=== PATIENT | male | born 1935 | race Caucasian/White ===

== ENCOUNTER 2017-11-17 20:26 | Inpatient (IN) | payer OTHER, BC ==
[~2017-11-17] VITALS: Ht 180.3 cm; Wt 70.0 kg
--- NOTE | ~2017-11-17 | 2DMMODE ---
[facility] [address] [place] [address] 2 D/M-MODE ECHOCARDIOGRAM Name: TIMODAVID Room #: 205-P ADM IN ..#: [id number] Admission: 11/17/17 Attend Phys: Remi Ortiz MD Discharge: Date of : 33 Date of Service: 11/18/17 1146 Report #: [id number] THIS REPORT FOR: //name// APPROVED REPORT Study performed: 11/18/2017 09:36:20 EXAM: Comprehensive 2D, Doppler, and color-flow Echocardiogram Patient Location: Bedside Room #: 205 Status: routine BSA: 1.97 HR: 91 bpm BP: 112/51 mmHg Other Information Study Quality: Adequate/Technically Difficult Indications COPD Diabetes Atrial Fibrillation CAD Hypertension/HDD 2D Dimensions RVDd: 32.59 mm LVEF(%): 60.59 (>50%) IVSd: 20.50 (7-11mm) LVOT Diam: 19.22 (18-24mm) LVDd: 37.82 mm PWd: 16.07 (7-11mm) Ascending Ao: 31.62 (22-36mm) LVDs: 25.80 (25-40mm) Aortic Root: 30.00 mm IVC: 17.00 mm Keene's LVEF: 60.59 % Volumes Left Atrial Volume (Systole) Single Plane 4CH: 104.75 mL Single Plane 2CH: 99.10 mL LA ESV Index: 59.00 mL/m2 Aortic Valve AoV Peak Humphrey.: 1.62 m/s AO Peak Gr.: 10.43 mmHg LVOT Max P.68 mmHg LVOT Max V: 1.19 m/s JOVANY Vmax: 2.13 cm2 [facility] [address] [place] [address] 2 D/M-MODE ECHOCARDIOGRAM Name: [facility] Room #: 205-P [facility] IN .R.#: [id number] Admission: 11/17/17 Attend Phys: Remi Ortiz MD Discharge: Date of : 34 Date of Service: 11/18/17 1146 Report #: [id number] Mitral Valve MV Decel. Time: 143.55 ms MV E Max Humphrey.: 0.90 m/s IVRT: 100.35 ms Pulmonary Valve PV Peak Humphrey.: 1.23 m/s PV Peak Gr.: 6.05 mmHg Tricuspid Valve TR Peak Humphrey.: 3.02 m/s RAP Estimate: 5.00 mmHg TR Peak Gr.: 36.36 mmHg PA Pressure: 41.00 mmHg Left Ventricle Left ventricular cavity is small. Severe left ventricular hypertrophy. with significantly thickened interventricular septum Left ventricular systolic function is hyperdynamic. LVEF is >70%. This study is not technically sufficient to allow evaluation of the LV diastolic function due to atrial fibrillation. Right Ventricle The right ventricle is normal size. Right ventricle is mildly hypokinetic. Atria Left atrium is severely dilated. Right atrium is mildly dilated. Aortic Valve The Aortic valve is sclerotic. No aortic regurgitation is present. There is no aortic valvular stenosis. Mitral Valve Mild mitral annular calcification. Trace mitral regurgitation. No evidence of mitral valve stenosis. Tricuspid Valve The tricuspid valve is normal in structure. Trace tricuspid regurgitation. PAP is estimated at 41 mmHg. Pulmonic Valve The pulmonary valve is normal in structure. Trace pulmonic regurgitation. Great Vessels [facility] [address] [place] [address] 2 D/M-MODE ECHOCARDIOGRAM Name: [facility] Room #: 205-P ADM IN M.R.#: [id number] Admission: 11/17/17 Attend Phys: Remi Ortiz MD Discharge: Date of : 34 Date of Service: 11/18/17 1146 Report #: [id number] The aortic root is normal in size. IVC is normal in size and collapses >50% with inspiration. Pericardium There is no pericardial effusion. <Conclusion> Left ventricular cavity is small. Severe left ventricular hypertrophy. with significantly thickened interventricular septum LVEF is >70%. Left atrium is severely dilated. Right atrium is mildly dilated. The Aortic valve is sclerotic. Mild mitral annular calcification. Trace mitral regurgitation. The tricuspid valve is normal in structure. Trace tricuspid regurgitation. PAP is estimated at 41 mmHg. The pulmonary valve is normal in structure. Trace pulmonic regurgitation. There is no pericardial effusion. <ELECTRONICALLY SIGNED> By: Matthew West MD 11/18/17 1146 1146 1146 Matthew West MD /INF
--- NOTE | ~2017-11-17 | EKG ---
[address] [address] ELECTROCARDIOGRAM REPORT Name: DAVID GREENWOOD Room #: 458-P ADM IN M.R.#: [id number] Admission: 11/17/17 Attend Phys: Remi Ortiz MD Discharge: Date of : 34 Report #: [id number] THIS REPORT FOR: //name// [facility] ED Test Date: 2017-11-17 Test Time: 20:36:13 Pat Name: DAVID GREENWOOD Department: Room: Gender: M Content Strategist: RUBEN : 1935 Requested By: Gera Dash Order Number: [id number] MD: Sukh Buckley Measurements Intervals [place] Rate: 89 P: AL: QRS: 4 QRSD: 106 T: 66 QT: 408 QTc: 497 Interpretive Statements Atrial fibrillation Ventricular premature complex Probable left ventricular hypertrophy Prolonged QT interval Compared to ECG 03/01/2011 08:24:05 Ventricular premature complex(es) now present Prolonged QT interval now present ST (T wave) deviation no longer present Possible ischemia no longer present Electronically Signed On 11-17-2017 22:18:53 CDT by Sukh Buckley [email or web address] <ELECTRONICALLY SIGNED> By: Sukh Buckley MD 11/17/172217 35 35 Sukh Buckley MD /EPI
--- NOTE | ~2017-11-17 | HC ---
[facility] [place] [address] CONSULTATION Name: DAVID GREENWOOD Room #: 462-P ADM IN M.R.#: [id number] Admission: 11/17/17 Attend Phys: Clare Ty Discharge: Date of : 34 Report #: [id number] THIS REPORT FOR: //name// CC: Jose Ty DATE OF SERVICE: 11/21/2017 CONSULTATION: Infectious Diseases. HISTORY OF PRESENT ILLNESS: The patient is an 82-year-old white male who was admitted to [facility], 11/17/2017 when he fell and was too weak to get up. He was home on the floor for approximately 8 hours before his nephew came home and found him there and brought him to the hospital. In the hospital, the patient was noted to be dehydrated with a very low potassium at 2.2, leukocytosis and positive troponin, but probably not in acute myocardial infarction. The patient had been given a history of diarrhea for about one week prior to this illness. He had previous falls, but has not been trapped on the floor before. Because of the diarrhea, stool cultures were obtained. In addition, blood cultures were obtained because of the general debility. Infectious Disease consultation was requested when stool and one blood culture both came back with Salmonella. PAST MEDICAL HISTORY: Past history is significant for diabetes with hypertension and hyperlipidemia. The patient has coronary artery disease, history of atrial fibrillation and stroke. He has COPD. Other diagnoses include gastroesophageal reflux disease, prostatic hypertrophy and degenerative joint disease. The patient has had a cholecystectomy. ALLERGIES: The patient gives no history of drug allergies. FAMILY HISTORY: Noncontributory. SOCIAL HISTORY: The patient is . He lives with his nephew, but apparently has been fairly independent with activities of daily living and even driving prior to coming to the hospital. The patient was a smoker in the past, but quit about 1 year ago. No history of alcohol use. 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 REVIEW OF SYSTEMS: The patient offers no complaints, but he may be a bit confused and have some hearing deficits; so, I am not too sure how reliable this is. When asked regarding problems with head, neck or chest, the patient denies any problems. He admits he did have diarrhea, but this is now resolved. The patient denies any urinary complaints. He notes weakness in his extremities, mostly in his legs and to a lesser degree, in his arms. [facility] [address] [place] [address] CONSULTATION Name: DAVID GREENWOOD Room #: 462-P ADM IN M.R.#: [id number] Admission: 11/17/17 Attend Phys: Clare Ty Discharge: Date of : 34 Report #: [id number] PHYSICAL EXAMINATION: GENERAL: On examination, the patient appears his stated age, alert and oriented to time, place and person. He is in no distress. VITAL SIGNS: Show the patient has been afebrile throughout this hospitalization. Pulse and blood pressure have been normal. SKIN: Shows no rash, no lesion. ENT EXAMINATION: Negative. There appears to be hearing deficit, particularly on the left side. NECK: Supple. HEART: Heart sounds S1, S2, regular rate. LUNGS: Clear to anterior auscultation. ABDOMEN: The belly is soft and not tender. No rebound, no guarding. EXTREMITIES: Unremarkable. LABORATORY DATA: The white count was 18 on admission and is now down to 10.9; hemoglobin has gone from 15.1 to 12.3 with hydration and platelets are 335,000. Chemistry: Sodium 144, potassium has gone from 2.2 to 3.2, chloride 114, bicarbonate 15, BUN 86 and creatinine has gone from 5 to 3.1. The INR was 18 and vitamin K is down to 1.4. Liver function tests are normal. Troponin has been elevated. One blood culture as well as the stool are positive for Salmonella, susceptible to ampicillin, Bactrim and Rocephin. SUMMARY: In summary, the patient has been debilitated and falling. He was down for about 8 hours before he was found with his last fall. Workup shows in the setting of 7 days of diarrhea, Salmonella in the blood and urine. Of note, the patient has not been aware of anyone else with diarrhea. He is not aware of any mishandled or bad poultry products. I believe the patient would benefit from antibiotic therapy for the Salmonella. With the elevated creatinine, Rocephin would be an excellent choice because of his dual pathways of excretion. In addition, the hepatic excretion creates very high levels of Rocephin in the gut, which is then not absorbed and passes through and may offer a topical treatment for enteric infections. Antibiotic therapy may increase the state, which could be a problem as the patient is to go to rehab. At this time, we will continue Rocephin as has been initiated. The patient will need isolation. I elect to do followup electrolytes including magnesium. We will want to notify Infection Control and probably the Health Department as Salmonella is a reportable disease. [facility] [address] [place] [address] CONSULTATION Name: DAVID GREENWOOD Room #: 462-P [facility] IN M.R.#: [id number] Admission: 11/17/17 Attend Phys: Clare Ty Discharge: Date of : 34 Report #: [id number] I appreciate the opportunity of input in the care of the patient. Dr. Mikhail Buckley will return on Wednesday for additional infectious disease followup. By: 2135 0210 Alberto Munoz MD /anand
[~2017-11-17 20:26] MED LIST: AMLODIPINE BESYL5 MG PO; ASPIRIN325 PO; COUMADIN 4 MG TA4 M1 PO; D3 DOTS2000 UNIT PO; DILTIAZEM 24HR300 M1 PO; FUROSEMIDE 20 M20 M1 PO; GLUCOPHAGE1000 MG PO; HYDROCODON-ACE1 EAC7 PO; LISINOPRIL20 MG PO; LOVASTAT10 PO; LOVASTAT20 PO; METAMUCIL283 GM PO; MIRALAX255 GM PO; NORVASC 5 MG TAB5 MG PO; PROAIR HFA8.5 GM INH; SYMBICORT160 MCG/4. INH; SYMBICORT80 MCG/4.1 INH
[2017-11-17 20:39] VITALS: BP 105/47
[2017-11-17 21:32] LABS: URINE BILIRUBIN NEGATIVE (Negative); URINE BLOOD NEGATIVE (Negative); URINE CLARITY CLEAR; URINE COLOR YELLOW; URINE GLUCOSE-RANDOM* NEGATIVE (Negative); URINE KETONES NEGATIVE (Negative); URINE LEUKOCYTES-REFLEX NEGATIVE (Negative); URINE NITRITE-REFLEX NEGATIVE (Negative); URINE PROTEIN (DIPSTICK) 1+ (Negative); URINE SPECIFIC GRAVITY 1.025 (1.005-1.035); URINE UROBILINOGEN 0.2 E.U./dl (0.2-1.0)
[2017-11-17 21:33] LABS: HEMATOCRIT 44.8 % (42.0-52.0); HEMOGLOBIN 15.1 gm/dL (14.0-18.0); MCH 29.8 pg (26.0-34.0); MCHC 33.7 g/dL (28.0-37.0); MCV 88.5 fL (80.0-100.0); PLATELET COUNT 336 thou/uL (150-400); RBC 5.06 mil/uL (4.50-6.00); RDW 15.7 % (10.5-14.5)
[2017-11-17 21:42] LABS: BACTERIA-REFLEX 1-9 Few /HPF (None Seen); CASTS None Seen /LPF (None Seen); CRYSTALS None Seen /LPF (None Seen); SQUAMOUS 0-3 Few /LPF (0-3); URINE RBC None Seen /HPF (0-2); URINE WBC-REFLEX None Seen /HPF (0-5)
[2017-11-17 21:42] LABS: CALCIUM 11.7 mg/dL (8.5-10.1)
[2017-11-17 21:43] LABS: POTASSIUM 2.2 mmol/L (3.5-5.1)
[2017-11-17 21:50] LABS: ABSOLUTE NEUTROPHILS 15.5 thou/uL (1.4-8.2)
[2017-11-17 21:51] LABS: ANISOCYTOSIS 1+; POLYCHROMASIA OCCASIONAL
[2017-11-17 21:52] LABS: MAGNESIUM 2.4 mg/dL (1.8-2.4); TOTAL BILIRUBIN 0.5 mg/dL (<0.1-1.0); TOTAL PROTEIN 7.4 g/dL (6.4-8.2)
[2017-11-17 21:53] LABS: ALBUMIN 3.3 g/dL (3.4-5.0)
[2017-11-17 21:54] LABS: TROPONIN-I 0.81 ng/mL (<0.06)
[2017-11-17 22:10] LABS: APTT 54.5 Seconds (24.5-32.8); PROTIME 178.4 Seconds (9.3-11.4)
[2017-11-17 22:15] VITALS: BP 117/72
[2017-11-17 22:28] LABS: INR > 18.0
[2017-11-17 22:34] VITALS: BP 127/59
[2017-11-17] MEDS ORDERED: EYE DROP TEARS15 ML INTRAOCULR (23:58)
[2017-11-18 01:57] VITALS: BP 120/43
[2017-11-18 02:28] LABS: HEMATOCRIT 36.6 % (42.0-52.0); MCH 29.8 pg (26.0-34.0); MCHC 33.5 g/dL (28.0-37.0); MCV 88.8 fL (80.0-100.0); RBC 4.12 mil/uL (4.50-6.00); RDW 15.3 % (10.5-14.5); WBC 15.3 thou/uL (4.0-11.0)
[2017-11-18 02:31] LABS: HEMOGLOBIN 12.3 gm/dL (14.0-18.0)
[2017-11-18 02:35] LABS: PROTIME 152.6 Seconds (9.3-11.4)
[2017-11-18 02:37] LABS: INR 15.6; POTASSIUM 2.6 mmol/L (3.5-5.1)
[2017-11-18 02:38] LABS: ALBUMIN 2.4 g/dL (3.4-5.0); CALCIUM 10.1 mg/dL (8.5-10.1); CREATININE 4.6 mg/dL (0.7-1.3)
[2017-11-18 02:48] LABS: TOTAL BILIRUBIN 0.4 mg/dL (<0.1-1.0); TOTAL PROTEIN 5.5 g/dL (6.4-8.2)
[2017-11-18 02:50] LABS: TROPONIN-I 0.69 ng/mL (<0.06)
[2017-11-18 04:40] VITALS: BP 112/51
[2017-11-18 07:30] VITALS: BP 98/46
[2017-11-18 07:41] LABS: PROTIME 24.8 Seconds (9.3-11.4)
[2017-11-18 07:43] LABS: INR 2.5
[2017-11-18 11:15] VITALS: BP 114/50
[2017-11-18 15:40] VITALS: BP 96/57
[2017-11-18 19:44] VITALS: BP 110/60
[2017-11-19 03:53] VITALS: BP 120/63
[2017-11-19 04:27] LABS: CHOLESTEROL 105 mg/dL (<200); HDL CHOLESTEROL 33 mg/dL (>40); INR 1.4; LDL CHOLESTEROL 40 mg/dL (<100); MAGNESIUM 2.1 mg/dL (1.8-2.4); PHOSPHORUS 3.8 mg/dL (2.5-4.9); PROTIME 13.8 Seconds (9.3-11.4); TC:HDL 3.2 Ratio (Not establshd); TRIGLYCERIDE 160 mg/dL (<150); VLDL 32 mg/dL (<40)
[2017-11-19 04:29] LABS: ALBUMIN 2.4 g/dL (3.4-5.0); CALCIUM 9.9 mg/dL (8.5-10.1); CREATININE 4.6 mg/dL (0.7-1.3); PHOSPHORUS 3.7 mg/dL (2.5-4.9); SERUM ASSESSMENT Clear
[2017-11-19 04:52] LABS: TSH 2.596 uIU/mL (0.358-3.740)
[2017-11-19 08:00] VITALS: BP 126/63
[2017-11-19 12:00] VITALS: BP 125/62
[2017-11-19 16:00] VITALS: BP 118/60
[2017-11-19 19:06] VITALS: BP 115/59
[2017-11-20 00:10] LABS: GLYCOHEMOGLOBIN (HGB A1C) 6.6 % (4.8-5.6)
[2017-11-20 03:27] LABS: HEMATOCRIT 36.4 % (42.0-52.0); HEMOGLOBIN 12.3 gm/dL (14.0-18.0); MCH 30.4 pg (26.0-34.0); MCHC 33.8 g/dL (28.0-37.0); MCV 89.7 fL (80.0-100.0); RBC 4.05 mil/uL (4.50-6.00); RDW 15.7 % (10.5-14.5); WBC 10.9 thou/uL (4.0-11.0)
[2017-11-20 03:41] LABS: ALBUMIN 2.5 g/dL (3.4-5.0); CALCIUM 10.2 mg/dL (8.5-10.1); CREATININE 3.9 mg/dL (0.7-1.3); PHOSPHORUS 3.6 mg/dL (2.5-4.9); POTASSIUM 3.6 mmol/L (3.5-5.1)
[2017-11-20 04:16] VITALS: BP 134/77
[2017-11-20 07:05] VITALS: BP 121/65
[2017-11-20 11:15] VITALS: BP 138/62
[2017-11-20 19:51] VITALS: BP 137/72
[2017-11-21 05:13] LABS: ALBUMIN 2.4 g/dL (3.4-5.0); CALCIUM 9.7 mg/dL (8.5-10.1); CREATININE 3.1 mg/dL (0.7-1.3); PHOSPHORUS 3.5 mg/dL (2.5-4.9); POTASSIUM 3.2 mmol/L (3.5-5.1)
[2017-11-21 06:44] VITALS: BP 134/74
[2017-11-21 16:20] VITALS: BP 140/71
[2017-11-21 19:38] VITALS: BP 148/71
[2017-11-22 04:09] LABS: HEMATOCRIT 34.9 % (42.0-52.0); HEMOGLOBIN 11.7 gm/dL (14.0-18.0); MCH 30.1 pg (26.0-34.0); MCHC 33.6 g/dL (28.0-37.0); MCV 89.5 fL (80.0-100.0); RBC 3.9 mil/uL (4.50-6.00); RDW 15.9 % (10.5-14.5); WBC 8.7 thou/uL (4.0-11.0)
[2017-11-22 04:20] LABS: ALBUMIN 2.4 g/dL (3.4-5.0); CALCIUM 9.5 mg/dL (8.5-10.1); CREATININE 2.8 mg/dL (0.7-1.3); MAGNESIUM 1.5 mg/dL (1.8-2.4); POTASSIUM 3.5 mmol/L (3.5-5.1); TOTAL BILIRUBIN 0.5 mg/dL (<0.1-1.0); TOTAL PROTEIN 5.6 g/dL (6.4-8.2)
[2017-11-22 04:37] VITALS: BP 143/78
[2017-11-22 08:00] VITALS: BP 138/71
[2017-11-22 16:00] VITALS: BP 137/76
[2017-11-22 20:41] VITALS: BP 127/72
[2017-11-23 03:29] VITALS: BP 131/57
[2017-11-23 07:01] LABS: ALBUMIN 2.5 g/dL (3.4-5.0); CALCIUM 9.4 mg/dL (8.5-10.1); CREATININE 2.3 mg/dL (0.7-1.3); PHOSPHORUS 2.7 mg/dL (2.5-4.9); POTASSIUM 3.7 mmol/L (3.5-5.1)
[2017-11-23 08:00] VITALS: BP 135/55
[2017-11-23] MEDS ORDERED: CARDIZEM60 MG PO (09:02)
[2017-11-23] MEDS ORDERED: CEFUROXIME500 MG PO (09:02)
[2017-11-23] MEDS ORDERED: RISPERIDONE0.5 MG PO (09:03)
[2017-11-23] MEDS ORDERED: ADULT LOW DOSE81 MG PO (09:03)
[2017-11-23] MEDS ORDERED: NOVOLOG100 UNIT/1 SUBQ (09:10)
== END 2017-11-23 17:24 | DRG 871 ==
LOC: ER 20:26 → 4W 21:24 → 2N 21:24 → EROBS 21:24 → 4W 22:14 → 2N 11-18 01:55 → 4W 11-20 23:36
PROVIDERS: Emergency Medicine; Hospitalist; Nurse Practitioner Family; Registered Nurse
DX: A41.9 Sepsis, unspecified organism (principal); N17.0 Acute kidney failure with tubular necrosis; G92 Toxic encephalopathy; D68.59 Other primary thrombophilia; A02.0 Salmonella enteritis; J44.9 Chronic obstructive pulmonary disease, unspecified; M19.90 Unspecified osteoarthritis, unspecified site; N40.0 Benign prostatic hyperplasia without lower urinary tract symptoms; K21.9 Gastro-esophageal reflux disease without esophagitis; E11.42 Type 2 diabetes mellitus with diabetic polyneuropathy; N18.9 Chronic kidney disease, unspecified; F03.90 Unspecified dementia, unspecified severity, without behavioral disturbance, psychotic disturbance, mood disturbance, and anxiety; R06.6 Hiccough; R26.9 Unspecified abnormalities of gait and mobility; I48.2 Chronic atrial fibrillation; K52.9 Noninfective gastroenteritis and colitis, unspecified; E78.5 Hyperlipidemia, unspecified; I25.10 Atherosclerotic heart disease of native coronary artery without angina pectoris; E86.0 Dehydration; E87.6 Hypokalemia; H91.90 Unspecified hearing loss, unspecified ear; W18.30XA Fall on same level, unspecified, initial encounter; E11.22 Type 2 diabetes mellitus with diabetic chronic kidney disease; I12.9 Hypertensive chronic kidney disease with stage 1 through stage 4 chronic kidney disease, or unspecified chronic kidney disease; Y93.89 Activity, other specified; Z87.891 Personal history of nicotine dependence; Y92.89 Other specified places as the place of occurrence of the external cause; Y99.8 Other external cause status; Z86.73 Personal history of transient ischemic attack (TIA), and cerebral infarction without residual deficits; Z90.49 Acquired absence of other specified parts of digestive tract; Z79.01 Long term (current) use of anticoagulants; Z79.82 Long term (current) use of aspirin; Z79.84 Long term (current) use of oral hypoglycemic drugs; Z79.899 Other long term (current) drug therapy; Z88.8 Allergy status to other drugs, medicaments and biological substances
CPT/HCPCS: 10040; 10045; 10081

== ENCOUNTER 2017-11-23 14:51 | Inpatient (IN) | payer OTHER, BC ==
[~2017-11-23] VITALS: Ht 180.3 cm; Wt 77.9 kg
--- NOTE | ~2017-11-23 | HC ---
[facility] [place] [address] CONSULTATION Name: DAVID GREENWOOD Room #: 513-P ADM IN M.R.#: [id number] Admission: 11/23/17 Attend Phys: Jose Quiñones MD Discharge: Date of : 34 Report #: [id number] THIS REPORT FOR: //name// CC: Jose Vasquez DATE OF SERVICE: 11/28/2017 NEUROBEHAVIORAL STATUS EXAM: ATTENDING PHYSICIAN: Jose Quiñones MD. DIGITAL COORDINATOR: Cooper Patiño, PhD. CLINICAL PRESENTATION: The patient is an 82-year-old male admitted to the rehab unit at [facility] for comprehensive inpatient rehabilitation program to improve functional mobility, activities of daily living and self-care and mental status secondary to deficits from a toxic metabolic encephalopathy. He is reported to have been found by his nephew on the floor of his home. The patient lacks insight into his deficits and provided an inaccurate description of events that led to his hospitalization. He additionally is described as having had multiple falls several days prior to admission. The patient reports having fallen at a grocery store and striking the back of his head, requiring his nephew to come to retrieve him and bring him to their house. He appears to have confusion in regard to his injuries and the reason for his hospitalization. PAST MEDICAL HISTORY: Include non-insulin dependent diabetes mellitus, hypertension, COPD, stroke in 2004, atrial fibrillation, BPH, GERD, peripheral neuropathy, hard of hearing, prior history of chronic urinary incontinence. A complete description of his medical condition and history along with medications can be found in his medical record. Neuropsychological consultation was requested to provide assistance in the assessment of cognitive and emotional status and to provide recommendations and services. Prior to this recent deterioration in cognition, he was living independently in his own home. He has a nephew that reportedly lives nearby and provides assistance when necessary. The patient has one daughter. He is . He is a college graduate. 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 TECHNIQUES UTILIZED: Clinical interview, review of medical records, staff consultation and behavioral observation, mini mental status exam 2 standard version and clock drawing. [facility] [address] [place] [address] CONSULTATION Name: TIMODAVID Room #: 513-P [facility] IN ..#: [id number] Admission: 11/23/17 Attend Phys: Jose Quiñones MD Discharge: Date of : 34 Report #: [id number] EXAMINATION FINDINGS: The patient was alert and cooperative with the assessment. He was unable to accurately describe events preceding his hospitalization. His description of historical events is inconsistent with that report in the medical record. He describes symptoms to include difficulty with sleep, tiredness and fatigue, concentration and attention, word finding and anxiety that he attributes to just feeling restless and fidgety. He does not report difficulty with memory or appetite. He does not report any history of alcohol or drug abuse. His performance on the MMSE 2 brief version is in the borderline range with a raw score of 12 of 16. He was 2 of 3 for initial registration, 5 of 5 for orientation to time, 3 of [address] and 2 of 3 for immediate recall of 3 items after a brief time delay and distraction. However, it should be noted that this impairment in hearing required multiple repetitions for initial registration. His immediate recall is likely to be adversely affected by deficits in hearing. Information will need to be written. His performance on the MMSE 2 standard version was extremely low with a raw score 21 of 30, T score 28, percentile rank of 1, which is a [id number] range. He was 1 of 5 for serial sevens, 2 of 2 for naming, 1 of 1 for repetition, 3 of 3 for auditory comprehension. He could read and follow single command. He was unable to accurately write a sentence. He could copy a simple geometric design. The patient was unable to accurately set the hands of a clock at a designated time for clock drawing. Decreased auditory comprehe nsion was noted during more complex instruction. Deficits in hearing will contribute to diminished auditory comprehension. The patient will benefit from having instructions, answers to questions and directions written. DIAGNOSTIC IMPRESSION: Neurocognitive disorder, due to medical etiology, with intermittent irritability and decreased insight, extent to be determined, likely in the moderate range. Unspecified anxiety disorder. RECOMMENDATIONS: As indicated, the patient will benefit from having information provided in written format. Auditory processing is impaired. Hearing is contributing to deficits in comprehension. He will need increased supervision and structure to maintain safety upon return home. Assistance in management of medication and nutrition is suggested. The patient should discontinue driving upon a more thorough evaluation of his ability to drive independently. During his rehabilitation stay, concrete explanations for treatment and once again written instruction during therapies will also help his overall adjustment. [facility] [address] [place] [address] CONSULTATION Name: TIMODAVID Room #: 513-P ADM IN M.R.#: [id number] Admission: 11/23/17 Attend Phys: Jose Quiñones MD Discharge: Date of : 34 Report #: [id number] Thank you very much for allowing me to provide the consultation on this patient. <ELECTRONICALLY SIGNED> By: Cooper Patiño, PhD 11/29/17 1728 1332 2105 Cooper Patiño, PhD /nt
--- NOTE | ~2017-11-23 | H ---
[facility] [place] [place] [address] HISTORY AND PHYSICAL Name: DAVID GREENWOOD Room #: 513-P [facility] IN M.R.#: [id number] Admission: 11/23/17 Attend Phys: Jose Quiñones MD Discharge: 12/03/17 Date of : 34 Report #: [id number] THIS REPORT FOR: //name// CC: Jose Vasquez DATE OF SERVICE: 11/23/2017 HISTORY AND PHYSICAL/POSTADMISSION PHYSICIAN EVALUATION HISTORY OF PRESENT ILLNESS: The patient is an 82-year-old white male originally admitted to [facility] on 11/17/2017 after his nephew found him down on the floor at his house. He reported hitting his head, but no loss of consciousness. He was noted to have multiple falls 3 days prior to admission, decreased appetite and diarrhea for 1 week. He was on Coumadin for atrial fibrillation. He was found to have elevated troponin with positive blood cultures, severe acute renal insufficiency with delirium/encephalopathy and initially needed a sitter. He was diagnosed with salmonella enteritis with bacteremia, acute renal insufficiency, malnutrition. He has been on IV ceftriaxone. He had an elevated INR upon admission and was actually greater than 18. He also had severe hypokalemia. He has diabetes mellitus and his metformin was held. He was noted to have cognitive deficits and a significant functional decline with his encephalopathy and generalized weakness and debilitation and has been admitted for acute in-hospital inpatient rehabilitation. PAST MEDICAL HISTORY: Includes non-insulin dependent diabetes mellitus, hypertension, COPD, stroke in 2004, atrial fibrillation, BPH, GERD, peripheral neuropathy, hard of hearing, prior history of chronic urinary incontinence/dribbling, he used pads. ALLERGIES: PLASMA PROTEIN FRACTION, ALBUMIN, CLOPIDOGREL. PAST SURGICAL HISTORY: Cholecystectomy. FAMILY HISTORY: Not pertinent family history. HABITS: Past tobacco, quit greater than a year ago. No history of alcohol abuse. SOCIAL HISTORY: He lives in a one-cathy home alone. Nephew checks in on him every evening. He was independent with all ADLs, premorbidly used a walker in the community, premorbidly was still driving. REVIEW OF SYSTEMS: No current complaints of chest pain, shortness of breath or abdominal discomfort. He complains of being overall weak. He does have some [facility] [address] [address] HISTORY AND PHYSICAL Name: [facility] Room #: 513-P [facility] IN .R.#: [id number] Admission: 11/23/17 Attend Phys: Jose Quiñones MD Discharge: 12/03/17 Date of : 34 Report #: [id number] decreased distal sensation that he notes with his diabetes mellitus and peripheral neuropathy. PHYSICAL EXAMINATION: GENERAL: An 82-year-old white male in no obvious distress. VITAL SIGNS: Last recorded temperature 97.9, pulse 100, respirations 20, blood pressure is 140/78. NEUROLOGIC: He is alert, male pattern and balding. Facies are symmetric, somewhat concrete. As far as his statements, some decreased insight. He will follow basic one-step commands. HEENT: Facies appeared symmetric. CHEST: Sounded clear to auscultation. CARDIOVASCULAR: Regular rate and rhythm. ABDOMEN: Bowel sounds are positive, nontender. GENITOURINARY AND RECTAL: Deferred. EXTREMITIES: He has functional range of motion of both upper extremities with strength grade of 4-/5. Lower extremities have functional range of motion, strength is a grade 4-/5. No calf swelling. Tone appeared to be intact. No distal lower extremity edema. Transfers are min assist. Gait min assist short distances. ASSESSMENT: An 82-year-old white male with the following problem list: 1. Toxic metabolic encephalopathy. 2. Possible traumatic brain injury, status post fall. He had several falls prior to his admission to the acute hospital. 3. Gait instability. 4. Salmonella enteritis with bacteremia. 5. Initially severely elevated INR, which has been corrected. 6. Acute renal insufficiency. Creatinine has decreased from 5 down to 2.5. 7. Diarrhea with positive occult blood. 8. Chronic atrial fibrillation. He was on anticoagulation, has been stopped secondary to fall risk. 9. Elevated troponin. 10. Hypokalemia. 11. Diabetes mellitus type 2 with peripheral neuropathy. 12. Chronic obstructive pulmonary disease. 13. Past history of cerebrovascular accident. 14. Hypertension. PLAN: The patient is admitted for acute in-hospital inpatient rehabilitation. From a postadmission physician evaluation perspective, there are no relevant changes since the preadmission screening. Please see the above review of prior and current medical and functional conditions and comorbidities. Please see the patient's previous and current functional status. As far as risk of complications, the patient has multiple medical comorbidities as noted above. Initial plan of care involves the interdisciplinary acute inpatient [address] [address] HISTORY AND PHYSICAL Name: DAVID GREENWOOD Room #: 513-P DIS IN M.R.#: [id number] Admission: 11/23/17 Attend Phys: Jose Quiñones MD Discharge: 12/03/17 Date of : 34 Report #: [id number] rehabilitation program with the goal of maximizing his functional independence so that he can hopefully return back to his prior living situation. Measurable functional goals would be for him to become modified independent with transfers, mobility and ADLs and to improve his overall cognition, so he can return back to the home setting. Prognosis is reasonably good with estimated length of stay probably at least 10 days to 2 weeks. We will need to see how he does in therapies. Potential barriers would include his multiple medical comorbidities and decreased functional status. The patient meets diagnostic criteria for an acute in-hospital inpatient rehabilitation stay. He meets medical necessity criteria. He does have the tolerance for therapies and has appropriate discharge goals back to the home setting. <ELECTRONICALLY SIGNED> By: Jose Quiñones MD 12/03/17 1515 0901 Jose Quiñones MD /nt
[~2017-11-23 14:51] MED LIST changes: +ADULT LOW DOSE81 MG PO; +CARDIZEM60 MG PO; +CEFUROXIME500 MG PO; +EYE DROP TEARS15 ML INTRAOCULR; +NOVOLOG100 UNIT/1 SUBQ; +RISPERIDONE0.5 MG PO
[2017-11-23 16:30] VITALS: BP 136/60
[2017-11-23 20:50] VITALS: BP 127/64
[2017-11-24 03:56] LABS: HEMATOCRIT 33.8 % (42.0-52.0); HEMOGLOBIN 11.2 gm/dL (14.0-18.0); MCH 29.8 pg (26.0-34.0); MCHC 33.3 g/dL (28.0-37.0); MCV 89.5 fL (80.0-100.0); RBC 3.77 mil/uL (4.50-6.00); RDW 16.4 % (10.5-14.5); WBC 12.8 thou/uL (4.0-11.0)
[2017-11-24 04:04] LABS: CALCIUM 9.2 mg/dL (8.5-10.1); CREATININE 2.5 mg/dL (0.7-1.3); POTASSIUM 3.8 mmol/L (3.5-5.1)
[2017-11-24 07:30] VITALS: BP 138/82
[2017-11-24 19:23] VITALS: BP 143/51
[2017-11-25 07:55] VITALS: BP 139/61
[2017-11-25 20:10] VITALS: BP 128/70
[2017-11-26 06:28] LABS: ABSOLUTE NEUTROPHILS 5.6 thou/uL (1.4-8.2); BASOPHILS 0.7 % (0.0-2.0); EOSINOPHILS 1.1 % (0.0-3.0); HEMATOCRIT 29.4 % (42.0-52.0); HEMOGLOBIN 9.9 gm/dL (14.0-18.0); LYMPHOCYTES 18.9 % (24.0-44.0); MCH 30.4 pg (26.0-34.0); MCHC 33.7 g/dL (28.0-37.0); MCV 90.2 fL (80.0-100.0); MONOCYTES 10.3 % (1.0-8.0); PLATELET COUNT 245 thou/uL (150-400); RBC 3.25 mil/uL (4.50-6.00); RDW 16.7 % (10.5-14.5); WBC 8.1 thou/uL (4.0-11.0)
[2017-11-26 06:45] LABS: CALCIUM 9.3 mg/dL (8.5-10.1); CREATININE 2.1 mg/dL (0.7-1.3); MAGNESIUM 1.5 mg/dL (1.8-2.4); POTASSIUM 3.8 mmol/L (3.5-5.1)
[2017-11-26 08:15] VITALS: BP 137/72
[2017-11-26 19:54] VITALS: BP 148/79
[2017-11-27 07:55] VITALS: BP 134/73
[2017-11-27 20:45] VITALS: BP 134/57
[2017-11-28 07:50] VITALS: BP 143/67
[2017-11-28 19:50] VITALS: BP 141/59
[2017-11-29 06:25] LABS: ABSOLUTE NEUTROPHILS 5.8 thou/uL (1.4-8.2); EOSINOPHILS 0.9 % (0.0-3.0); HEMATOCRIT 29.7 % (42.0-52.0); LYMPHOCYTES 19.6 % (24.0-44.0); MCH 30.2 pg (26.0-34.0); MCHC 33.7 g/dL (28.0-37.0); MCV 89.7 fL (80.0-100.0); MONOCYTES 9.9 % (1.0-8.0); PLATELET COUNT 246 thou/uL (150-400); POLYS 68.6 % (36.0-66.0); RBC 3.31 mil/uL (4.50-6.00); WBC 8.4 thou/uL (4.0-11.0)
[2017-11-29 06:39] LABS: CALCIUM 9.4 mg/dL (8.5-10.1); CREATININE 1.7 mg/dL (0.7-1.3); POTASSIUM 3.9 mmol/L (3.5-5.1)
[2017-11-29 08:15] VITALS: BP 151/64
[2017-11-29 19:29] VITALS: BP 137/78
[2017-11-30 08:00] VITALS: BP 134/74
[2017-11-30 19:29] VITALS: BP 136/84
[2017-12-01 08:00] VITALS: BP 125/83
[2017-12-01 21:16] VITALS: BP 163/70
[2017-12-02 00:39] VITALS: BP 139/61
[2017-12-02 08:00] VITALS: BP 116/61
[2017-12-02 15:40] VITALS: BP 116/61
[2017-12-02 21:14] VITALS: BP 129/78
[2017-12-03 06:50] LABS: ABSOLUTE NEUTROPHILS 4.6 thou/uL (1.4-8.2); BASOPHILS 0.9 % (0.0-2.0); EOSINOPHILS 2.2 % (0.0-3.0); HEMATOCRIT 29.6 % (42.0-52.0); LYMPHOCYTES 20.9 % (24.0-44.0); MCH 30.4 pg (26.0-34.0); MCHC 33.8 g/dL (28.0-37.0); MCV 89.8 fL (80.0-100.0); MONOCYTES 11.2 % (1.0-8.0); PLATELET COUNT 313 thou/uL (150-400); POLYS 64.8 % (36.0-66.0); RDW 15.2 % (10.5-14.5); WBC 7.1 thou/uL (4.0-11.0)
[2017-12-03 07:00] LABS: CALCIUM 9.5 mg/dL (8.5-10.1); CREATININE 1.9 mg/dL (0.7-1.3); MAGNESIUM 1.7 mg/dL (1.8-2.4); POTASSIUM 3.9 mmol/L (3.5-5.1)
[2017-12-03] MEDS ORDERED: CARDIZEM60 MG PO (07:45)
[2017-12-03] MEDS ORDERED: FLOMAX0.4 MG PO (07:45)
[2017-12-03] MEDS ORDERED: RISPERIDONE0.5 MG PO (07:45)
[2017-12-03 09:15] VITALS: BP 132/51
== END 2017-12-03 14:04 | disposition home health service (06) | DRG 91 ==
PROVIDERS: Hospitalist; Nurse Practitioner; Nurse Practitioner Family
DX: G92 Toxic encephalopathy (principal); N17.0 Acute kidney failure with tubular necrosis; A02.0 Salmonella enteritis; E46 Unspecified protein-calorie malnutrition; R78.81 Bacteremia; E87.0 Hyperosmolality and hypernatremia; E87.1 Hypo-osmolality and hyponatremia; R41.0 Disorientation, unspecified; E87.6 Hypokalemia; J44.9 Chronic obstructive pulmonary disease, unspecified; K21.9 Gastro-esophageal reflux disease without esophagitis; E11.42 Type 2 diabetes mellitus with diabetic polyneuropathy; Z60.2 Problems related to living alone; R26.9 Unspecified abnormalities of gait and mobility; R19.7 Diarrhea, unspecified; E78.5 Hyperlipidemia, unspecified; I25.10 Atherosclerotic heart disease of native coronary artery without angina pectoris; M19.90 Unspecified osteoarthritis, unspecified site; E86.0 Dehydration; I48.2 Chronic atrial fibrillation; K59.00 Constipation, unspecified; N40.1 Benign prostatic hyperplasia with lower urinary tract symptoms; N39.498 Other specified urinary incontinence; R29.6 Repeated falls; H91.90 Unspecified hearing loss, unspecified ear; D64.9 Anemia, unspecified; E11.22 Type 2 diabetes mellitus with diabetic chronic kidney disease; I12.9 Hypertensive chronic kidney disease with stage 1 through stage 4 chronic kidney disease, or unspecified chronic kidney disease; N18.9 Chronic kidney disease, unspecified; K64.9 Unspecified hemorrhoids; S06.9X0A Unspecified intracranial injury without loss of consciousness, initial encounter; W18.39XA Other fall on same level, initial encounter; Y93.89 Activity, other specified; Z79.01 Long term (current) use of anticoagulants; Z86.73 Personal history of transient ischemic attack (TIA), and cerebral infarction without residual deficits; Z88.8 Allergy status to other drugs, medicaments and biological substances; Z90.49 Acquired absence of other specified parts of digestive tract; Z87.891 Personal history of nicotine dependence; Z91.81 History of falling; Y92.89 Other specified places as the place of occurrence of the external cause; Y99.8 Other external cause status; Z68.24 Body mass index [BMI] 24.0-24.9, adult
CPT/HCPCS: 10112